=== PATIENT | male | born 1990 | race Asian ===

== ENCOUNTER 2020-09-07 15:39 | Emergency (ER) | payer OTHER ==
[~2020-09-07] VITALS: Ht 167.6 cm; Wt 75.3 kg
--- NOTE | 2020-09-07 16:01 | NUR ---
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
[2020-09-07 16:06] VITALS: BP 138/83
--- NOTE | 2020-09-07 16:18 | NUR ---
PT DENIES CP AT THIS TIME. BP CUFF, PULSE OX IN PLACE.
[2020-09-07] MEDS ORDERED: ASPIRIN 81 MG TABLET CHEW PO ONE (16:30)
[2020-09-07] MEDS ORDERED: MAALOX/HYOSCYAMINE/LIDOCAINE 45 ML BTL PO ONE (16:30)
[2020-09-07] MEDS ORDERED: ASPIRIN 81 MG TABLET CHEW ONE (16:36)
[2020-09-07] MEDS ORDERED: MAALOX/HYOSCYAMINE/LIDOCAINE 45 ML BTL ONE (16:36)
--- NOTE | 2020-09-07 16:41 | NUR ---
PT MEDICATED PER ERP ORDER. CALL LIGHT WITHIN REACH.
[2020-09-07 17:11] LABS: BASOPHILS % (AUTO) 0 % (0-1); EOSINOPHILS % (AUTO) 0 % (1-7); LYMPHOCYTES % (AUTO) 29 % (22-44); MEAN CORPUSCULAR HEMOGLOBIN 30.8 pg (27.5-34.5); MEAN CORPUSCULAR HGB CONC 33.7 g/dL (33.2-36.2); MEAN PLATELET VOLUME 9.1 fL (7.4-10.4); MONOCYTES % (AUTO) 6 % (2-9); NEUTROPHILS % (AUTO) 65 % (42-75); PLATELET COUNT 310 x10^3/uL (130-400); RED BLOOD COUNT 5.02 x10^6/uL (4.38-5.82); RED CELL DISTRIBUTION WIDTH 13.3 % (9.4-14.8)
[2020-09-07 17:16] LABS: ALANINE AMINOTRANSFERASE 29 U/L (12-78); ALBUMIN 4.3 g/dL (3.4-5.0); ANION GAP 6 mmol/L (5-15); CHLORIDE 106 mmol/L (98-107)
[2020-09-07 17:21] LABS: ALKALINE PHOSPHATASE 63 U/L (45-117); BILIRUBIN,TOTAL 0.8 mg/dL (0.2-1.0); TOTAL PROTEIN 8.5 g/dL (6.4-8.2); TROPONIN I < 0.015 ng/mL (0.000-0.045)
--- NOTE | 2020-09-07 17:25 | NUR ---
ALL RESULTS BACK, PT FOR RECHECK.
== END 2020-09-07 18:01 | disposition home or self-care (01) ==
LOC: ED 17:10
DX: R07.89 Other chest pain (principal)
CPT/HCPCS: 36415; 71045; 80053; 84484; 85025; 93005; 99285